=== PATIENT | female | born 1960 | race African-American/Black ===

== ENCOUNTER 2016-10-25 12:09 | Emergency (ER) | payer BC ==
--- NOTE | ~2016-10-25 | EKG ---
PATIENT: EVERETT MONREAL UNIT #: [id number] Ventricular Rate: 103 BPM Atrial Rate: 103 BPM P-R Interval: 170 ms QRS Duration: 76 ms Q-T Interval: 354 ms QTC Calculation(Bezet): 463 ms P [place]: 56 degrees Calculated R [place]: 49 degrees Calculated T [place]: 59 degrees Diagnosis Line: Sinus tachycardia Diagnosis Line: Possible Left atrial enlargement Diagnosis Line: Borderline ECG Diagnosis Line: No previous ECGs available Diagnosis Line: Confirmed by PAIGE VALENCIA MD ([id number]) on Diagnosis Line: 10/26/2016 5:29:15 PM INTERPRETING MD: ANNIE DE LEON
--- NOTE | ~2016-10-25 | CR63 ---
[facility] A Service of [facility] [place] RADIOLOGY TEXT RESULTS PATIENT: EVERETT MONREAL LOCATION: SED : 62 UNIT #: [id number] AGE: [address]: WALTER PATEL SEX: F ORDER DR: [id number] [address] [address] [id number] E MR#: [id number] Acc #: [id number] NAME: EVERETT MONREAL : 1960 SEX: F STUDY DATE/TIME: 10/25/2016 12:46 UNIT: SED ROOM: STUDY DESCRIPTION: CR Chest 2 View Attending Physician: Walter Patel Ordering Physician: Staff Doctor Not On Primary Care Physician: Karma Dutton M.D. MEDICAL IMAGING REPORT This report is preliminary unless electronic signature is present. EXAM PA and lateral chest INDICATION Shortness of breath, congestion 2 weeks. COMMENT Comparison is made to a prior study from July 15, 2007. FINDINGS Cardiomegaly is identified without any evidence of vascular congestion. There is stable scarring identified within the left upper lobe. There is some prominence of the perihilar interstitium which may reflect chronic bronchitis. Similar findings were present in June of 2007. No definite acute alveolar infiltrates are seen. There is no pneumothorax or pleural effusion. No aggressive osseous abnormalities are seen. IMPRESSION 1. Cardiomegaly without any evidence of vascular congestion. 2. Stable scarring identified within the left upper lobe. 3. Coarsening of the perihilar interstitium which may reflect changes of chronic bronchitis. Similar findings were present on the exam from 2007. Dictated by... Yanely Jackson M.D. THIS IS AN ELECTRONICALLY VERIFIED REPORT Yanely Jackson M.D. at 10/25/2016 4:56 PM AFF/aa [facility] A Service of [facility] [place] RADIOLOGY TEXT RESULTS PATIENT: EVERETT MONREAL LOCATION: SED : 62 UNIT #: [id number] AGE: [address]: WALTER PATEL SEX: F ORDER DR: TD: 10/25/2016 15:24 JOB #: [id number] MEDICAL IMAGING REPORT Page 1 of 1
[~2016-10-25 12:09] MED LIST: BACTRIM DS TABL1 TA1 PO; PHENERGAN12.5 MG DOB
== END 2016-10-25 13:45 | disposition home or self-care (01) ==
LOC: SED 12:09
DX: J98.01 Acute bronchospasm (principal); J30.2 Other seasonal allergic rhinitis; R03.0 Elevated blood-pressure reading, without diagnosis of hypertension
CPT/HCPCS: 71020; 93005; 94640; 99284